=== PATIENT | male | born 1965 | race Caucasian/White ===

== ENCOUNTER 2020-03-28 07:25 | Inpatient (IN) | payer OTHER ==
--- NOTE | 2020-03-28 07:57 | EDM.PDOC ---
ED HPI GENERAL MEDICAL PROBLEM - General Chief Complaint: Lower Extremity Injury/Pain Stated Complaint: PT. LEGS ARE WEAK Time Seen by Provider: 03/28/20 07:42 Source of Information: Reports: Patient History Limitations: Reports: No Limitations - History of Present Illness INITIAL COMMENTS - FREE TEXT/NARRATIVE: Patient is a 55-year-old male with a history of high blood pressure presents today for right-sided weakness. Patient states that he woke up around 5 AM when he realized that he had difficulty getting out of bed felt his right leg and arms were both weak. Patient felt as if he could not control his right arm and leg and said it took him 15 minutes to finally get out of bed. He states that his symptoms are improving somewhat currently but are not back to baseline. Patient denies any vision changes speech changes or any other neurologic complaints. Onset: Today - Related Data Allergies Allergy/AdvReac Type Severity Reaction Status Date / Time No Known Allergies Allergy Verified 03/28/20 07:35 Home Meds: Home Meds NIFEdipine [Nifedipine ER] 1 tab PO DAILY 03/28/20 [History] Past Medical History Cardiovascular History: Reports: Hypertension Genitourinary History: Reports: Renal Calculus Social & Family History - Tobacco Use Tobacco Use Status *Q: Never Tobacco User Second Hand Smoke Exposure: No - Caffeine Use Caffeine Use: Reports: Coffee, Energy Drinks, Tea - Recreational Drug Use Recreational Drug Use: No - Living Situation & Occupation Living situation: Reports: , Alone Occupation: Employed ([employer]) Review of Systems - Review of Systems Review Of Systems: See Below Constitutional: Reports: No Symptoms Eyes: Reports: No Symptoms Ears: Reports: No Symptoms Nose: Reports: No Symptoms Mouth/Throat: Reports: No Symptoms Respiratory: Reports: No Symptoms Cardiovascular: Reports: No Symptoms GI/Abdominal: Reports: No Symptoms Genitourinary: Reports: No Symptoms Musculoskeletal: Reports: No Symptoms Skin: Reports: No Symptoms Neurological: Reports: Difficulty Walking Psychiatric: Reports: No Symptoms ED EXAM, GENERAL - Physical Exam Exam: See Below Exam Limited By: No Limitations General Appearance: Alert, WD/WN Eye Exam: Bilateral Eye: EOMI, PERRL Nose: Normal Inspection Head: Atraumatic Respiratory/Chest: No Respiratory Distress, Lungs Clear Cardiovascular: Normal Peripheral Pulses, Regular Rate, Rhythm GI/Abdominal: Normal Bowel Sounds, Soft, Non-Tender Back Exam: Full Range of Motion Extremities: Normal Range of Motion Neurological: Alert, Oriented, CN II-XII Intact, Sensory/Motor Deficit (strength 5/5 left side and 3/5 upper and lower right side ). No: Normal Gait #1 Interpretation EKG Date: 03/28/20 Time: 08:10 Rhythm: NSR Rate (Beats/Min): 85 ST-T: Normal Course - Vital Signs Last Recorded V/S: Last Vital Signs Temp 96.1 F L 03/28/20 07:38 Pulse 87 03/28/20 08:30 Resp 26 H 03/28/20 08:30 BP 129/87 03/28/20 08:30 Pulse Ox 96 03/28/20 08:30 - Orders/Labs/Meds Orders: Active Orders 24 hr Category Date Time Status EKG 12 Lead [EKG Documentation Completion] [RC] STAT Care 03/28/20 08:10 Active Labs: Laboratory Tests 03/28/20 03/28/20 03/28/20 Range/Units 07:52 07:52 07:52 WBC 5.15 (4.0-11.0) K/uL RBC 5.20 (4.50-5.90) M/uL Hgb 15.2 (13.0-17.0) g/dL Hct 45.8 (38.0-50.0) % MCV 88.1 (80.0-98.0) fL MCH 29.2 (27.0-32.0) pg MCHC 33.2 (31.0-37.0) g/dL RDW Std Deviation 43.6 (28.0-62.0) fl RDW Coeff of Miguelito 14 (11.0-15.0) % Plt Count 233 (150-400) K/uL MPV 9.30 (7.40-12.00) fL Neut % (Auto) 34.2 L (48.0-80.0) % Lymph % (Auto) 57.3 H (16.0-40.0) % Crook % (Auto) 6.2 (0.0-15.0) % Eos % (Auto) 1.7 (0.0-7.0) % Baso % (Auto) 0.6 (0.0-1.5) % Neut # (Auto) 1.8 (1.4-5.7) K/uL Lymph # (Auto) 3.0 H (0.6-2.4) K/uL Crook # (Auto) 0.3 (0.0-0.8) K/uL Eos # (Auto) 0.1 (0.0-0.7) K/uL Baso # (Auto) 0.0 (0.0-0.1) K/uL Nucleated RBC % 0.0 /100WBC Nucleated RBCs # 0 K/uL INR 1.00 APTT 22.9 (18.6-31.3) SEC Sodium 138 (136-148) mmol/L Potassium 3.7 (3.5-5.1) mmol/L Chloride 103 (98-107) mmol/L Carbon Dioxide 26.1 (21.0-32.0) mmol/L BUN 8 (7.0-18.0) mg/dL Creatinine 1.0 (0.8-1.3) mg/dL Est Cr Clr Drug Dosing 88.90 mL/min Estimated GFR (MDRD) > 60.0 ml/min Glucose 152 H (74-106) mg/dL POC Glucose (60-110) mg/dL Calcium 8.9 (8.5-10.1) mg/dL Magnesium 2.2 (1.8-2.4) mg/dL Total Bilirubin 0.3 (0.2-1.0) mg/dL AST 28 (15-37) IU/L ALT 55 (14-63) IU/L Alkaline Phosphatase 74 (46-116) U/L Creatine Kinase 190 (26-308) U/L Total Protein 7.9 (6.4-8.2) g/dL Albumin 3.9 (3.4-5.0) g/dL Globulin 4.0 (2.6-4.0) g/dL Albumin/Globulin Ratio 1.0 (0.9-1.6) Urine Opiates Screen (NEGATIVE) Ur Oxycodone Screen (NEGATIVE) Urine Methadone Screen (NEGATIVE) Ur Barbiturates Screen (NEGATIVE) Ur Phencyclidine Scrn (NEGATIVE) Ur Amphetamine Screen (NEGATIVE) U Methamphetamines Scrn (NEGATIVE) U Benzodiazepines Scrn (NEGATIVE) U Cocaine Metab Screen (NEGATIVE) U Marijuana (THC) Screen (NEGATIVE) Ethyl Alcohol <3 mg/dL Influenza Type A RNA (NEGATIVE) Influenza Type B RNA (NEGATIVE) SARS-CoV-2 RNA (JILL) (NEGATIVE) 03/28/20 03/28/20 03/28/20 Range/Units 07:52 08:28 08:35 WBC (4.0-11.0) K/uL RBC (4.50-5.90) M/uL Hgb (13.0-17.0) g/dL Hct (38.0-50.0) % MCV (80.0-98.0) fL MCH (27.0-32.0) pg MCHC (31.0-37.0) g/dL RDW Std Deviation (28.0-62.0) fl RDW Coeff of Miguelito (11.0-15.0) % Plt Count (150-400) K/uL MPV (7.40-12.00) fL Neut % (Auto) (48.0-80.0) % Lymph % (Auto) (16.0-40.0) % Crook % (Auto) (0.0-15.0) % Eos % (Auto) (0.0-7.0) % Baso % (Auto) (0.0-1.5) % Neut # (Auto) (1.4-5.7) K/uL Lymph # (Auto) (0.6-2.4) K/uL Crook # (Auto) (0.0-0.8) K/uL Eos # (Auto) (0.0-0.7) K/uL Baso # (Auto) (0.0-0.1) K/uL Nucleated RBC % /100WBC Nucleated RBCs # K/uL INR APTT (18.6-31.3) SEC Sodium (136-148) mmol/L Potassium (3.5-5.1) mmol/L Chloride (98-107) mmol/L Carbon Dioxide (21.0-32.0) mmol/L BUN (7.0-18.0) mg/dL Creatinine (0.8-1.3) mg/dL Est Cr Clr Drug Dosing mL/min Estimated GFR (MDRD) ml/min Glucose (74-106) mg/dL POC Glucose 143 H (60-110) mg/dL Calcium (8.5-10.1) mg/dL Magnesium (1.8-2.4) mg/dL Total Bilirubin (0.2-1.0) mg/dL AST (15-37) IU/L ALT (14-63) IU/L Alkaline Phosphatase (46-116) U/L Creatine Kinase (26-308) U/L Total Protein (6.4-8.2) g/dL Albumin (3.4-5.0) g/dL Globulin (2.6-4.0) g/dL Albumin/Globulin Ratio (0.9-1.6) Urine Opiates Screen NEGATIVE (NEGATIVE) Ur Oxycodone Screen NEGATIVE (NEGATIVE) Urine Methadone Screen NEGATIVE (NEGATIVE) Ur Barbiturates Screen NEGATIVE (NEGATIVE) Ur Phencyclidine Scrn NEGATIVE (NEGATIVE) Ur Amphetamine Screen NEGATIVE (NEGATIVE) U Methamphetamines Scrn NEGATIVE (NEGATIVE) U Benzodiazepines Scrn NEGATIVE (NEGATIVE) U Cocaine Metab Screen NEGATIVE (NEGATIVE) U Marijuana (THC) Screen NEGATIVE (NEGATIVE) Ethyl Alcohol mg/dL Influenza Type A RNA NEGATIVE (NEGATIVE) Influenza Type B RNA NEGATIVE (NEGATIVE) SARS-CoV-2 RNA (JILL) NEGATIVE (NEGATIVE) Meds: Medications Discontinued Medications Generic Name Dose Route Start Last Admin Trade Name Freq PRN Reason Stop Dose Admin Aspirin 325 mg 03/28/20 08:25 03/28/20 08:30 Aspirin PO 03/28/20 08:26 325 mg ONETIME ONE Administration Iopamidol 100 ml 03/28/20 09:30 03/28/20 09:31 Isovue Multipack-370 (76%) IVPUSH 03/28/20 09:31 100 ml ONETIME ONE Administration - Re-Assessments/Exams Free Text/Narrative Re-Assessment/Exam: 03/28/20 08:26 CT head is negative for stroke. Patient has better strength in his right arm but still complaining of weakness in his left lower extremity that is since became worse again. Patient will be given aspirin and admitted to the hospital for further care. 03/28/20 09:55 Patient CTAs are negative we spoke to hospitalist will admit patient for TIA work-up. Departure - Departure Time of Disposition: 09:55 Disposition: Admitted As Inpatient 66 Condition: Good Clinical Impression: TIA (transient ischemic attack) - Discharge Information *PRESCRIPTION DRUG MONITORING PROGRAM REVIEWED*: Not Applicable *COPY OF PRESCRIPTION DRUG MONITORING REPORT IN PATIENT JOSE: Not Applicable Referrals: PCP,None [Primary Care Provider] - Forms: ED Department Discharge Sepsis Event Note (ED) - Evaluation Sepsis Screening Result: No Definite Risk - Focused Exam Vital Signs: Vital Signs Temp Pulse Resp BP Pulse Ox 03/28/20 08:30 87 26 H 129/87 96 03/28/20 08:15 87 17 134/91 H 99 03/28/20 08:09 90 17 136/89 98 03/28/20 07:50 96 98 03/28/20 07:38 96.1 F L 85 16 136/100 H 98 - My Orders Last 24 Hours: My Active Orders 03/28/20 08:10 EKG 12 Lead [EKG Documentation Completion] [RC] STAT - Assessment/Plan Last 24 Hours: My Active Orders 03/28/20 08:10 EKG 12 Lead [EKG Documentation Completion] [RC] STAT Assessment:: Patient is a 55-year-old male presents today for right upper and lower extremity weakness. Patient has some decreased strength in the right upper and lower extremities on examination. Patient NIH stroke scale is a 4 has limb ataxia motor arm and leg. Will obtain CT head labs and reassess. Due to patient waking up with the symptoms patient is not a TPA candidate at this time.
--- NOTE | 2020-03-28 08:20 | CT ---
INDICATION: Right-sided weakness. TECHNIQUE: CT head without contrast. Coronal/sagittal reconstruction images. COMPARISON: None FINDINGS: CSF spaces: Within normal limits for age. Brain parenchyma: The muhammad-white differentiation is normal. No sign of mass, hemorrhage, or midline shift. Skull base and calvarium: The visualized paranasal sinuses and mastoid air cells are clear. The visualized orbits are grossly unremarkable. No skull fractures. IMPRESSION: 1. There is no acute intracranial hemorrhage, shift of midline structures, or mass effect. 2. No hyperdense MCA sign. 3. Muhammad-white matter differentiation appears maintained on noncontrast head CT. 4. Report called to Dr. Andersen, Emergency Department, 03/28/20, 0819 hours. Please note that all CT scans at this facility use dose modulation, iterative reconstruction, and/or weight-based dosing when appropriate to reduce radiation dose to as low as reasonably achievable. Dictated by Jeremy Magana MD @ Mar 28 2020 8:14AM Signed by Dr. Jeremy Magana @ Mar 28 2020 8:19AM
[2020-03-28 08:22] LABS: BLOOD UREA NITROGEN,BUN 8 mg/dL (7.0-18.0); CARBON DIOXIDE,CO2 26.1 mmol/L (21.0-32.0); CHLORIDE,CL 103 mmol/L (98-107); GLUCOSE RANDOM 152 mg/dL (74-106); POTASSIUM,K 3.7 mmol/L (3.5-5.1); SODIUM,NA 138 mmol/L (136-148)
[2020-03-28] MEDS ORDERED: Aspirin 325 MG Tab PO ONE (08:25)
[2020-03-28 09:21] LABS: CORONAVIRUS COVID-19 NAA NEGATIVE (NEGATIVE); INFLUENZA A NAA NEGATIVE (NEGATIVE); INFLUENZA B NAA NEGATIVE (NEGATIVE)
[2020-03-28] MEDS ORDERED: Iopamidol 755 MG/ML 500 ML Multipack Bottle IVPUSH ONE (09:30)
--- NOTE | 2020-03-28 09:44 | CT ---
INDICATION: Acute stroke, right-sided weakness. TECHNIQUE: After standard noncontrast head CT, high resolution axial CT images acquired through the head and neck following rapid intravenous administration of iodinated contrast. Multiplanar MIPS of cranial and cervical vasculature performed. FINDINGS: Noncontrast head CT: There is no intracranial hemorrhage or fluid collection. The beasley-white matter differentiation is maintained. The ventricles are of normal morphology. The basal cisterns are clear. CTA head: There is normal filling of the intracranial vasculature; i.e. there is no large vessel occlusion or significant intracranial stenosis. There is no cerebral aneurysm or evidence for vascular malformation. CTA neck: There is no carotid or vertebral artery stenosis or dissection. The soft tissues of the neck are within normal limits. The cervical spine is in normal alignment. The lung apices are clear. IMPRESSION: Unremarkable CT head, CTA head and neck. Reginaldo Stapleton MD [facility] [employer] [facility] Please note that all CT scans at this facility use dose modulation, iterative reconstruction, and/or weight-based dosing when appropriate to reduce radiation dose to as low as reasonably achievable. Dictated by Reginaldo Stapleton MD @ Mar 28 2020 10:26AM Signed by Dr. Reginaldo Stapleton @ Mar 28 2020 10:31AM
[2020-03-28] MEDS ORDERED: Ondansetron 4 MG Tab.DIS PO PRN (13:31)
[2020-03-28] MEDS ORDERED: Acetaminophen 325 MG Tab PO PRN (13:31)
[2020-03-28 13:58] LABS: HEMOGLOBIN A1C 6.2 %
--- NOTE | 2020-03-28 14:09 | PCM.HP.2 ---
H&P History of Present Illness - General Date of Service: 03/28/20 Admit Problem/Dx: Admission Diagnosis/Problem Admission Diagnosis/Problem TIA, Transient ischemic attack TIA vs. Stroke Source of Information: Patient - History of Present Illness Initial Comments - Free Text/Narative: Patient is a 55-year-old gentleman with a past medical history of hypertension. Patient came into the ER with complaints of noted weakness in his right upper extremity and lower extremity. He noted his symptoms at 5 AM when he got up as he was having difficulty getting out of bed and he took approximately 15 minutes to get out. Patient denies any previous similar events, no history of known hyperlipidemia, tobacco abuse, obesity, or previous strokes or TIA. However does endorse family history of strokes in both parents in their early 50s and 60s. Patient denied any associated cranial nerve defects, no difficulty with speech or slurring, no sensory deficits appreciated throughout, no headache, no fever, no chills, no numbness or tingling. Since coming to the ER upper extremity strength has somewhat improved but lower extremity continues to worsen. Patient was seen and examined at bedside and unable to lift his right lower extremity, wiggles toes. Denies any alleviating or aggravating factors. ER course: CBC, CMP, EKG, CT head, CTA head and neck, PT/INR, urine tox, Covid, influenza AMB all were unremarkable. Therapy given in the ED: Aspirin 325 mg Onset of Symptoms: Reports: Today, Sudden Associated Symptoms: Reports: Weakness (in Rt. upper extremity and unable to move his Rt. lower extremity.) - Related Data Allergies/Adverse Reactions: Allergies Allergy/AdvReac Type Severity Reaction Status Date / Time No Known Allergies Allergy Verified 03/28/20 07:35 Home Medications: Home Meds NIFEdipine [Nifedipine ER] 1 tab PO DAILY 03/28/20 [History] Past Medical History Cardiovascular History: Reports: Hypertension Respiratory History: Reports: None Gastrointestinal History: Reports: None Genitourinary History: Reports: Renal Calculus Musculoskeletal History: Reports: None Hematologic History: Reports: None Oncologic (Cancer) History: Reports: None - Past Surgical History Head Surgeries/Procedures: Reports: None Cardiovascular Surgical History: Reports: None Social & Family History - Tobacco Use Tobacco Use Status *Q: Never Tobacco User Second Hand Smoke Exposure: No - Caffeine Use Caffeine Use: Reports: Coffee - Alcohol Use Days Per Week of Alcohol Use: 3 Number of Drinks Per Day: 1 Total Drinks Per Week: 3 Date of Last Drink: 03/25/20 - Recreational Drug Use Recreational Drug Use: No - Living Situation & Occupation Living situation: Reports: , Alone Occupation: Employed ([employer]) H&P Review of Systems - Review of Systems: Review Of Systems: See Below General: Reports: No Symptoms HEENT: Reports: No Symptoms Pulmonary: Reports: No Symptoms Cardiovascular: Reports: No Symptoms Gastrointestinal: Reports: No Symptoms Genitourinary: Reports: No Symptoms Musculoskeletal: Reports: No Symptoms Skin: Reports: No Symptoms Psychiatric: Reports: No Symptoms Neurological: Reports: Weakness Hematologic/Lymphatic: Reports: No Symptoms Immunologic: Reports: No Symptoms Exam - Exam Exam: See Below - Vital Signs Vital Signs: Last Vital Signs Temp 98.1 F 03/28/20 11:05 Pulse 91 03/28/20 11:05 Resp 19 03/28/20 11:05 BP 132/80 03/28/20 11:05 Pulse Ox 97 03/28/20 11:05 Weight: 192 lb 7.417 oz - Exam Quality Assessment: DVT Prophylaxis General: Alert, Oriented, Cooperative, Mild Distress, Moderate Distress HEENT: Conjunctiva Clear, EACs Clear, EOMI, Hearing Intact, Mucosa Moist & [place], Nares Patent, Normal Nasal Septum, Pupils Equal, Pupils Reactive, PERRLA Neck: Supple, Trachea Midline. No: +2 Carotid Pulse wo Bruit Lungs: Clear to Auscultation, Normal Respiratory Effort Cardiovascular: Regular Rate, Regular Rhythm GI/Abdominal Exam: Normal Bowel Sounds, Soft, Non-Tender, No Organomegaly, No Distention, No Abnormal Bruit, No Mass, Pelvis Stable Extremities: Normal Inspection, Normal Range of Motion, Non-Tender, No Pedal Edema, Normal Capillary Refill Peripheral Pulses: 2+: Radial (L), Radial (R), Popliteal (L), Popliteal (R) Skin: Warm, Dry, Intact Neurological: Cranial Nerves Intact, Reflexes Equal Bilateral Neuro Extensive - Mental Status: Alert, Oriented x3, Normal Mood/Affect, Normal Cognition, Memory Intact Neuro Extensive - Motor, Sensory, Reflexes: CN II-XII Intact, Hemeplagia (R), Pronator Drift (R) (Mild), Abnormal Heel to Adams (Unable to perform on right side), Abnormal Motor (Unable to lift, flex, extend or bend right lower extremity). No: Dysarthria, Receptive Aphasia, Expressive Aphasia, Facial Palsy wo Forehead, Babinski (Negative on right) DTR: 0: Patella (R), 1+: Bicep (R) (Difficult to assess), 2+: Bicep (L), Patella (L) Psychiatric: Alert, Normal Affect, Normal Mood - Patient Data Lab Results Last 24 hrs: Laboratory Results - last 24 hr 03/28/20 03/28/20 03/28/20 Range/Units 07:52 07:52 07:52 WBC 5.15 (4.0-11.0) K/uL RBC 5.20 (4.50-5.90) M/uL Hgb 15.2 (13.0-17.0) g/dL Hct 45.8 (38.0-50.0) % MCV 88.1 (80.0-98.0) fL MCH 29.2 (27.0-32.0) pg MCHC 33.2 (31.0-37.0) g/dL RDW Std Deviation 43.6 (28.0-62.0) fl RDW Coeff of Miguelito 14 (11.0-15.0) % Plt Count 233 (150-400) K/uL MPV 9.30 (7.40-12.00) fL Neut % (Auto) 34.2 L (48.0-80.0) % Lymph % (Auto) 57.3 H (16.0-40.0) % [place] % (Auto) 6.2 (0.0-15.0) % Eos % (Auto) 1.7 (0.0-7.0) % Baso % (Auto) 0.6 (0.0-1.5) % Neut # (Auto) 1.8 (1.4-5.7) K/uL Lymph # (Auto) 3.0 H (0.6-2.4) K/uL [place] # (Auto) 0.3 (0.0-0.8) K/uL Eos # (Auto) 0.1 (0.0-0.7) K/uL Baso # (Auto) 0.0 (0.0-0.1) K/uL Nucleated RBC % 0.0 /100WBC Nucleated RBCs # 0 K/uL INR 1.00 APTT 22.9 (18.6-31.3) SEC Sodium 138 (136-148) mmol/L Potassium 3.7 (3.5-5.1) mmol/L Chloride 103 (98-107) mmol/L Carbon Dioxide 26.1 (21.0-32.0) mmol/L BUN 8 (7.0-18.0) mg/dL Creatinine 1.0 (0.8-1.3) mg/dL Est Cr Clr Drug Dosing 88.90 mL/min Estimated GFR (MDRD) > 60.0 ml/min Glucose 152 H (74-106) mg/dL POC Glucose (60-110) mg/dL Calcium 8.9 (8.5-10.1) mg/dL Magnesium 2.2 (1.8-2.4) mg/dL Total Bilirubin 0.3 (0.2-1.0) mg/dL AST 28 (15-37) IU/L ALT 55 (14-63) IU/L Alkaline Phosphatase 74 (46-116) U/L Creatine Kinase 190 (26-308) U/L Total Protein 7.9 (6.4-8.2) g/dL Albumin 3.9 (3.4-5.0) g/dL Globulin 4.0 (2.6-4.0) g/dL Albumin/Globulin Ratio 1.0 (0.9-1.6) Urine Opiates Screen (NEGATIVE) Ur Oxycodone Screen (NEGATIVE) Urine Methadone Screen (NEGATIVE) Ur Barbiturates Screen (NEGATIVE) Ur Phencyclidine Scrn (NEGATIVE) Ur Amphetamine Screen (NEGATIVE) U Methamphetamines Scrn (NEGATIVE) U Benzodiazepines Scrn (NEGATIVE) U Cocaine Metab Screen (NEGATIVE) U Marijuana (THC) Screen (NEGATIVE) Ethyl Alcohol <3 mg/dL Influenza Type A RNA (NEGATIVE) Influenza Type B RNA (NEGATIVE) SARS-CoV-2 RNA (JILL) (NEGATIVE) 03/28/20 03/28/20 03/28/20 Range/Units 07:52 08:28 08:35 WBC (4.0-11.0) K/uL RBC (4.50-5.90) M/uL Hgb (13.0-17.0) g/dL Hct (38.0-50.0) % MCV (80.0-98.0) fL MCH (27.0-32.0) pg MCHC (31.0-37.0) g/dL RDW Std Deviation (28.0-62.0) fl RDW Coeff of Miguelito (11.0-15.0) % Plt Count (150-400) K/uL MPV (7.40-12.00) fL Neut % (Auto) (48.0-80.0) % Lymph % (Auto) (16.0-40.0) % [place] % (Auto) (0.0-15.0) % Eos % (Auto) (0.0-7.0) % Baso % (Auto) (0.0-1.5) % Neut # (Auto) (1.4-5.7) K/uL Lymph # (Auto) (0.6-2.4) K/uL [place] # (Auto) (0.0-0.8) K/uL Eos # (Auto) (0.0-0.7) K/uL Baso # (Auto) (0.0-0.1) K/uL Nucleated RBC % /100WBC Nucleated RBCs # K/uL INR APTT (18.6-31.3) SEC Sodium (136-148) mmol/L Potassium (3.5-5.1) mmol/L Chloride (98-107) mmol/L Carbon Dioxide (21.0-32.0) mmol/L BUN (7.0-18.0) mg/dL Creatinine (0.8-1.3) mg/dL Est Cr Clr Drug Dosing mL/min Estimated GFR (MDRD) ml/min Glucose (74-106) mg/dL POC Glucose 143 H (60-110) mg/dL Calcium (8.5-10.1) mg/dL Magnesium (1.8-2.4) mg/dL Total Bilirubin (0.2-1.0) mg/dL AST (15-37) IU/L ALT (14-63) IU/L Alkaline Phosphatase (46-116) U/L Creatine Kinase (26-308) U/L Total Protein (6.4-8.2) g/dL Albumin (3.4-5.0) g/dL Globulin (2.6-4.0) g/dL Albumin/Globulin Ratio (0.9-1.6) Urine Opiates Screen NEGATIVE (NEGATIVE) Ur Oxycodone Screen NEGATIVE (NEGATIVE) Urine Methadone Screen NEGATIVE (NEGATIVE) Ur Barbiturates Screen NEGATIVE (NEGATIVE) Ur Phencyclidine Scrn NEGATIVE (NEGATIVE) Ur Amphetamine Screen NEGATIVE (NEGATIVE) U Methamphetamines Scrn NEGATIVE (NEGATIVE) U Benzodiazepines Scrn NEGATIVE (NEGATIVE) U Cocaine Metab Screen NEGATIVE (NEGATIVE) U Marijuana (THC) Screen NEGATIVE (NEGATIVE) Ethyl Alcohol mg/dL Influenza Type A RNA NEGATIVE (NEGATIVE) Influenza Type B RNA NEGATIVE (NEGATIVE) SARS-CoV-2 RNA (JILL) NEGATIVE (NEGATIVE) Result Diagrams: 03/28/20 07:52 03/28/20 07:52 Sepsis Event Note - Evaluation Sepsis Screening Result: No Definite Risk - Focused Exam Vital Signs: Vital Signs Temp Pulse Resp BP Pulse Ox 03/28/20 11:05 98.1 F 91 19 132/80 97 03/28/20 10:45 88 130/67 97 03/28/20 10:30 89 133/78 97 03/28/20 10:15 92 125/79 98 03/28/20 10:00 88 19 128/76 98 03/28/20 09:45 87 22 H 108/58 L 98 03/28/20 09:30 85 156/101 H 95 03/28/20 08:50 87 20 123/89 95 03/28/20 08:30 87 26 H 129/87 96 03/28/20 08:15 87 17 134/91 H 99 03/28/20 08:09 90 17 136/89 98 03/28/20 07:50 96 98 03/28/20 07:38 96.1 F L 85 16 136/100 H 98 - Problem List (1) Stroke SNOMED Code(s): 200803052 ICD Code: I63.9 - CEREBRAL INFARCTION, UNSPECIFIED Status: Acute Current Visit: Yes (2) TIA (transient ischemic attack) SNOMED Code(s): 532759130 ICD Code: G45.9 - TRANSIENT CEREBRAL ISCHEMIC ATTACK, UNSPECIFIED Status: Acute Current Visit: Yes Problem List Initiated/Reviewed/Updated: Yes Orders Last 24hrs: Active Orders 24 hr Category Date Time Status Patient Status [ADT] Routine ADT 03/28/20 09:56 Active Antiembolic Devices [RC] PER UNIT ROUTINE Care 03/28/20 13:33 Ordered Cardiac Monitoring [RC] . DIRECTED Care 03/28/20 13:31 Ordered EKG 12 Lead [EKG Documentation Completion] [RC] STAT Care 03/28/20 08:10 Active Neuro Check [RC] BID Care 03/28/20 13:40 Ordered Notify Provider Consults [RC] ASDIRECTED Care 03/28/20 13:45 Ordered Oxygen Therapy [RC] PRN Care 03/28/20 13:31 Ordered Up With Assistance [RC] ASDIRECTED Care 03/28/20 13:31 Ordered VTE/DVT Education [RC] PER UNIT ROUTINE Care 03/28/20 13:31 Ordered Vital Signs [RC] Q4H Care 03/28/20 13:31 Ordered Consult to Physician [CONS] Stat Cons 03/28/20 13:45 Ordered OT Evaluation and Treatment [CONS] Routine Cons 03/28/20 13:31 Ordered PT Evaluation and Treatment [CONS] Routine Cons 03/28/20 13:31 Ordered Heart Healthy Diet [DIET] Diet 03/28/20 Dinner Active Brain w wo Cont [MR] Routine Exams 03/29/20 13:48 Ordered Echo 2D wo Cont [US] Urgent Exams 03/29/20 13:43 Ordered MRA Head Without Contrast [Ang Head wo Cont] [MR] Exams 03/29/20 13:42 Stop Req Urgent CBC WITH AUTO DIFF [HEME] AM Lab 03/29/20 05:11 Ordered CBC WITH AUTO DIFF [HEME] AM Lab 03/30/20 05:11 Ordered CBC WITH AUTO DIFF [HEME] AM Lab 03/31/20 05:11 Ordered CBC WITH AUTO DIFF [HEME] AM Lab 04/01/20 05:11 Ordered CBC WITH AUTO DIFF [HEME] AM Lab 04/02/20 05:11 Ordered COMPREHENSIVE METABOLIC PN,CMP [CHEM] AM Lab 03/29/20 05:11 Ordered COMPREHENSIVE METABOLIC PN,CMP [CHEM] AM Lab 03/30/20 05:11 Ordered COMPREHENSIVE METABOLIC PN,CMP [CHEM] AM Lab 03/31/20 05:11 Ordered COMPREHENSIVE METABOLIC PN,CMP [CHEM] AM Lab 04/01/20 05:11 Ordered COMPREHENSIVE METABOLIC PN,CMP [CHEM] AM Lab 04/02/20 05:11 Ordered GLYCOSYLATED HEMOGLOBIN,HGBA1C [CHEM] Routine Lab 03/28/20 13:31 Ordered LIPID PANEL [CHEM] Routine Lab 03/28/20 13:31 Ordered Acetaminophen [TylenoL] Med 03/28/20 13:31 Ordered 650 mg PO Q4H PRN Enoxaparin [Lovenox] Med 03/28/20 13:45 Ordered 40 mg SUBCUT Q24H Ondansetron [Zofran ODT] Med 03/28/20 13:31 Ordered 4 mg PO Q4H PRN atorvaSTATin [Lipitor] Med 03/28/20 21:00 Ordered 80 mg PO BEDTIME Sequential Compression Device [OM.PC] Per Unit Routine Oth 03/28/20 13:32 Ordered Resuscitation Status Routine Resus Stat 03/28/20 13:31 Ordered Medication Orders Acetaminophen (Tylenol) 650 mg PO Q4H PRN PRN Reason: Pain (Mild 1-3)/fever Atorvastatin Calcium (Lipitor) 80 mg PO BEDTIME AFSHIN Enoxaparin Sodium (Lovenox) 40 mg SUBCUT Q24H AFSHIN Ondansetron HCl (Zofran Odt) 4 mg PO Q4H PRN PRN Reason: nausea, able to take PO Assessment/Plan Comment:: Patient is a 55-year-old gentleman past medical history of hypertension, admitted for stroke versus TIA work-up. 1. Possible stroke versus TIA: Right-sided hemiplegia affecting right upper extremity and right lower extremity. Right extremity improved since coming to the ED, patient finds lower extremity symptoms are worsening. Otherwise denies any cranial nerve defects, preserved sensation throughout, denies any paresthesias. On physical examination noted significant weakness in right lower extremity. Unable to lift, extend, flex, or move joint with negative reflexes at knee ankle and Babinski. NIH score: 4 ABCD2 score: 4 CT head/CTA head and neck were all unremarkable, will perform MRI with and without contrast tomorrow as well as 2D echo. PT OT for evaluation and treatment We will consult Dr. Calvin and neurology. Time of stroke versus TIA symptoms is unknown therefore not a candidate for TPA, started on aspirin 325 mg, will initiate 81 mg daily and atorvastatin 80 mg daily starting tomorrow Monitor on telemetry Assess for modifying factors such as hemoglobin A1c and lipid panel. 2. Past medical history of hypertension: Will hold nifedipine today consider resuming tomorrow based on MRI results DVT prophylaxis Lovenox 40, [place] heart healthy diet, activity up with assistance, GI prophylaxis pantoprazole 40.
[2020-03-28] MEDS ORDERED: Enoxaparin 40 MG/0.4 ML Syringe SUBCUT SCH (14:15)
--- NOTE | 2020-03-28 17:06 | CT ---
INDICATION: Stroke-like symptoms COMPARISON: A prior study from 8:07 a.m. today. There study is from March 28, 2020 at 4:51 p.m. TECHNIQUE: CT examination of the head was performed as axial sections without intravenous contrast. Images were obtained from the vertex of the skull through the skull base. Please note that all CT scans at this facility use dose modulation, iterative reconstruction, and/or weight-based dosing when appropriate to reduce radiation dose to as low as reasonably achievable. FINDINGS: The brain shows no sign of mass lesion, mass effect, hemorrhage, or edema. The ventricles and sulci are normal in appearance for the patient`s age. The visualized portions of the orbits are normal in appearance. The osseous structures are normal in their appearance with no sign of abnormality in the skull base or calvarium. IMPRESSION: Normal unenhanced head CT. Please note that all CT scans at this facility use dose modulation, iterative reconstruction, and/or weight-based dosing when appropriate to reduce radiation dose to as low as reasonably achievable. Dictated by Leonardo Vela MD @ Mar 28 2020 5:02PM Signed by Dr. Leonardo Vela @ Mar 28 2020 5:04PM
--- NOTE | 2020-03-28 19:10 | PCM.DCSUM1 ---
Discharge Summary - Hospital Course Brief History: Patient is a 55-year-old gentleman with a past medical history of hypertension. Patient came into the ER with complaints of noted weakness in his right upper extremity and lower extremity. He noted his symptoms at 5 AM when he got up as he was having difficulty getting out of bed and he took approximately 15 minutes to get out. Patient denies any previous similar events, no history of known hyperlipidemia, tobacco abuse, obesity, or previous strokes or TIA. However does endorse family history of strokes in both parents in their early 50s and 60s. Patient denied any associated cranial nerve defects, no difficulty with speech or slurring, no sensory deficits appreciated throughout, no headache, no fever, no chills, no numbness or tingling. Since coming to the ER upper extremity strength has somewhat improved but lower extremity continues to worsen. Patient was seen and examined at bedside and unable to lift his right lower extremity, wiggles toes. Denies any alleviating or aggravating factors. ER course: CBC, CMP, EKG, CT head, CTA head and neck, PT/INR, urine tox, Covid, influenza AMB all were unremarkable. Therapy given in the ED: Aspirin 325 mg Diagnosis: Stroke: Yes Modified Kidder Scale: Mod.Sev.Disability ;Unable to Walk/Attend Bodily Needs W/O Assistance Modified Kidder Scale Score: 4 - Discharge Data Discharge Date: 03/28/20 Discharge Disposition: DC/Tfer to Critical Access [facility] Condition: Stable - Referral to Home Health Primary Care Physician: PCP None - Discharge Diagnosis/Problem(s) (1) Stroke SNOMED Code(s): 167177580 ICD Code: I63.9 - CEREBRAL INFARCTION, UNSPECIFIED Status: Acute Current Visit: Yes (2) TIA (transient ischemic attack) SNOMED Code(s): 324138719 ICD Code: G45.9 - TRANSIENT CEREBRAL ISCHEMIC ATTACK, UNSPECIFIED Status: Acute Current Visit: Yes - Patient Summary/Data Consults: Consultations 03/28/20 13:31 OT Evaluation and Treatment [CONS] Routine PT Evaluation and Treatment [CONS] Routine 03/28/20 13:45 Consult to Physician [CONS] Stat Hospital Course: Patient is a 55-year-old gentleman past medical history of hypertension on nifedipine, was admitted for stroke versus TIA work-up. 1. Possible stroke versus TIA: Right-sided hemiplegia affecting right upper extremity and right lower extremity. Right extremity improved since coming to the ED, patient finds lower extremity symptoms are worsening. Otherwise denies any cranial nerve defects, preserved sensation throughout, denies any paresthesias. On physical examination noted significant weakness in right lower extremity. Unable to lift, extend, flex, or move joint with negative reflexes at knee ankle and Babinski. NIH score: 6 ABCD2 score: 4 CT head/CTA head and neck were all unremarkable, will perform MRI with and without contrast tomorrow as well as 2D echo. PT OT for evaluation and treatment We will consult Dr. Calvin and neurology. Time of stroke versus TIA symptoms is unknown therefore not a candidate for TPA, started on aspirin 325 mg, will initiate 81 mg daily and atorvastatin 80 mg daily starting tomorrow Monitor on telemetry Assess for modifying factors such as hemoglobin A1c and lipid panel, results came back 6.2 for hemoglobin A1c and cholesterol was only elevated to 18 2. Past medical history of hypertension: Will hold nifedipine today consider resuming tomorrow based on MRI results DVT prophylaxis Lovenox 40, Serbian heart healthy diet, activity up with assistance, GI prophylaxis pantoprazole 40. Above was plan on admission Mid afternoon patient became slightly altered mental status, confused about where he was and forgot why he was admitted. He was also noted to be more fatigued appearing. Stroke code was called, blood glucose and an EKG were assessed; both unremarkable. Had repeat CT head which was unremarkable. Physical examination had unchanged from previous, NIH score remained 6. An hour later patient appears to be confused again but where he is. Resembling a possible postictal state, felt need for EEG, possible MRI and neurology consult which may or may not be available until tomorrow. Decided to transfer to a higher level of care. Dr. Richmond was kind enough to accept we appreciate her help - Discharge Plan *PRESCRIPTION DRUG MONITORING PROGRAM REVIEWED*: Not Applicable *COPY OF PRESCRIPTION DRUG MONITORING REPORT IN PATIENT JOSE: Not Applicable Home Medications: Home Meds Enoxaparin [Lovenox] 40 mg SUBCUT Q24H syringe 03/28/20 [Rx] NIFEdipine [Nifedipine ER] 1 tab PO DAILY 03/28/20 [History] atorvaSTATin [Lipitor] 80 mg PO BEDTIME tablet 03/28/20 [Rx] Oxygen Therapy Mode: Room Air Forms: ED Department Discharge Referrals: PCP,None [Primary Care Provider] - - Discharge Summary/Plan Comment DC Time >30 min.: Yes (due to arranging transfer to higher level of care ) Discharge Summary/Plan Comment: Patient will be accepted by Dr. Richmond in the ER in my not for further EEG and neurology assessment for possible stroke versus seizure. - General Info Admission Dx/Problem (Free Text: Admission Diagnosis/Problem Admission Diagnosis/Problem TIA, Transient ischemic attack TIA vs. Stroke Subjective Update: 55-year-old gentleman with a past medical history of hypertension which she takes nifedipine for and is compliant and tolerant. He was admitted for noted weakness in both right upper and lower extremity upon waking up this morning at 5 AM. Denied any other neurological symptoms. No history of previous stroke although has a family history of stroke in both parents in the 50s and 60s. Patient is a non-smoker. Functional Status: Reports: Tolerating Diet, Other (Was kept n.p.o. this afternoon due to possible transfer's for possible studies) - Review of Systems General: Reports: No Symptoms HEENT: Reports: No Symptoms Pulmonary: Reports: No Symptoms Cardiovascular: Reports: No Symptoms Gastrointestinal: Reports: No Symptoms Genitourinary: Reports: No Symptoms Musculoskeletal: Reports: No Symptoms Skin: Reports: No Symptoms Neurological: Reports: No Symptoms Psychiatric: Reports: No Symptoms - Patient Data Vitals - Most Recent: Last Vital Signs Temp 99 F 03/28/20 16:31 Pulse 91 03/28/20 16:31 Resp 18 03/28/20 16:31 BP 125/72 03/28/20 16:31 Pulse Ox 96 03/28/20 16:31 Weight - Most Recent: 192 lb 7.417 oz I&O - Last 24 hours: Intake & Output 03/28/20 03/28/20 03/28/20 06:59 14:59 22:59 Intake Total 60 Output Total 300 220 Balance -300 -160 Lab Results - Last 24 hrs: Laboratory Results - last 24 hr 03/28/20 03/28/20 03/28/20 Range/Units 07:52 07:52 07:52 WBC 5.15 (4.0-11.0) K/uL RBC 5.20 (4.50-5.90) M/uL Hgb 15.2 (13.0-17.0) g/dL Hct 45.8 (38.0-50.0) % MCV 88.1 (80.0-98.0) fL MCH 29.2 (27.0-32.0) pg MCHC 33.2 (31.0-37.0) g/dL RDW Std Deviation 43.6 (28.0-62.0) fl RDW Coeff of Miguelito 14 (11.0-15.0) % Plt Count 233 (150-400) K/uL MPV 9.30 (7.40-12.00) fL Neut % (Auto) 34.2 L (48.0-80.0) % Lymph % (Auto) 57.3 H (16.0-40.0) % [place] % (Auto) 6.2 (0.0-15.0) % Eos % (Auto) 1.7 (0.0-7.0) % Baso % (Auto) 0.6 (0.0-1.5) % Neut # (Auto) 1.8 (1.4-5.7) K/uL Lymph # (Auto) 3.0 H (0.6-2.4) K/uL [place] # (Auto) 0.3 (0.0-0.8) K/uL Eos # (Auto) 0.1 (0.0-0.7) K/uL Baso # (Auto) 0.0 (0.0-0.1) K/uL Nucleated RBC % 0.0 /100WBC Nucleated RBCs # 0 K/uL INR 1.00 APTT 22.9 (18.6-31.3) SEC Sodium 138 (136-148) mmol/L Potassium 3.7 (3.5-5.1) mmol/L Chloride 103 (98-107) mmol/L Carbon Dioxide 26.1 (21.0-32.0) mmol/L BUN 8 (7.0-18.0) mg/dL Creatinine 1.0 (0.8-1.3) mg/dL Est Cr Clr Drug Dosing 88.90 mL/min Estimated GFR (MDRD) > 60.0 ml/min Glucose 152 H (74-106) mg/dL POC Glucose (60-110) mg/dL Hemoglobin A1c (4.5 - 6.2) % Calcium 8.9 (8.5-10.1) mg/dL Magnesium 2.2 (1.8-2.4) mg/dL Total Bilirubin 0.3 (0.2-1.0) mg/dL AST 28 (15-37) IU/L ALT 55 (14-63) IU/L Alkaline Phosphatase 74 (46-116) U/L Creatine Kinase 190 (26-308) U/L Total Protein 7.9 (6.4-8.2) g/dL Albumin 3.9 (3.4-5.0) g/dL Globulin 4.0 (2.6-4.0) g/dL Albumin/Globulin Ratio 1.0 (0.9-1.6) Triglycerides (0-200) mg/dL Cholesterol (50-200) mg/dL LDL Cholesterol, Calc (60-180) mg/dL VLDL Cholesterol (5-55) mg/dL HDL Cholesterol (40-60) mg/dL Cholesterol/HDL Ratio (3.3-6.0) Urine Opiates Screen (NEGATIVE) Ur Oxycodone Screen (NEGATIVE) Urine Methadone Screen (NEGATIVE) Ur Barbiturates Screen (NEGATIVE) Ur Phencyclidine Scrn (NEGATIVE) Ur Amphetamine Screen (NEGATIVE) U Methamphetamines Scrn (NEGATIVE) U Benzodiazepines Scrn (NEGATIVE) U Cocaine Metab Screen (NEGATIVE) U Marijuana (THC) Screen (NEGATIVE) Ethyl Alcohol <3 mg/dL Influenza Type A RNA (NEGATIVE) Influenza Type B RNA (NEGATIVE) SARS-CoV-2 RNA (JILL) (NEGATIVE) 03/28/20 03/28/20 03/28/20 Range/Units 07:52 07:52 07:52 WBC (4.0-11.0) K/uL RBC (4.50-5.90) M/uL Hgb (13.0-17.0) g/dL Hct (38.0-50.0) % MCV (80.0-98.0) fL MCH (27.0-32.0) pg MCHC (31.0-37.0) g/dL RDW Std Deviation (28.0-62.0) fl RDW Coeff of Miguelito (11.0-15.0) % Plt Count (150-400) K/uL MPV (7.40-12.00) fL Neut % (Auto) (48.0-80.0) % Lymph % (Auto) (16.0-40.0) % [place] % (Auto) (0.0-15.0) % Eos % (Auto) (0.0-7.0) % Baso % (Auto) (0.0-1.5) % Neut # (Auto) (1.4-5.7) K/uL Lymph # (Auto) (0.6-2.4) K/uL [place] # (Auto) (0.0-0.8) K/uL Eos # (Auto) (0.0-0.7) K/uL Baso # (Auto) (0.0-0.1) K/uL Nucleated RBC % /100WBC Nucleated RBCs # K/uL INR APTT (18.6-31.3) SEC Sodium (136-148) mmol/L Potassium (3.5-5.1) mmol/L Chloride (98-107) mmol/L Carbon Dioxide (21.0-32.0) mmol/L BUN (7.0-18.0) mg/dL Creatinine (0.8-1.3) mg/dL Est Cr Clr Drug Dosing mL/min Estimated GFR (MDRD) ml/min Glucose (74-106) mg/dL POC Glucose 143 H (60-110) mg/dL Hemoglobin A1c 6.2 (4.5 - 6.2) % Calcium (8.5-10.1) mg/dL Magnesium (1.8-2.4) mg/dL Total Bilirubin (0.2-1.0) mg/dL AST (15-37) IU/L ALT (14-63) IU/L Alkaline Phosphatase (46-116) U/L Creatine Kinase (26-308) U/L Total Protein (6.4-8.2) g/dL Albumin (3.4-5.0) g/dL Globulin (2.6-4.0) g/dL Albumin/Globulin Ratio (0.9-1.6) Triglycerides 84 (0-200) mg/dL Cholesterol 218 H (50-200) mg/dL LDL Cholesterol, Calc 143 (60-180) mg/dL VLDL Cholesterol 16 (5-55) mg/dL HDL Cholesterol 58 (40-60) mg/dL Cholesterol/HDL Ratio 3.8 (3.3-6.0) Urine Opiates Screen (NEGATIVE) Ur Oxycodone Screen (NEGATIVE) Urine Methadone Screen (NEGATIVE) Ur Barbiturates Screen (NEGATIVE) Ur Phencyclidine Scrn (NEGATIVE) Ur Amphetamine Screen (NEGATIVE) U Methamphetamines Scrn (NEGATIVE) U Benzodiazepines Scrn (NEGATIVE) U Cocaine Metab Screen (NEGATIVE) U Marijuana (THC) Screen (NEGATIVE) Ethyl Alcohol mg/dL Influenza Type A RNA (NEGATIVE) Influenza Type B RNA (NEGATIVE) SARS-CoV-2 RNA (JILL) (NEGATIVE) 03/28/20 03/28/20 03/28/20 Range/Units 08:28 08:35 16:30 WBC (4.0-11.0) K/uL RBC (4.50-5.90) M/uL Hgb (13.0-17.0) g/dL Hct (38.0-50.0) % MCV (80.0-98.0) fL MCH (27.0-32.0) pg MCHC (31.0-37.0) g/dL RDW Std Deviation (28.0-62.0) fl RDW Coeff of Miguelito (11.0-15.0) % Plt Count (150-400) K/uL MPV (7.40-12.00) fL Neut % (Auto) (48.0-80.0) % Lymph % (Auto) (16.0-40.0) % [place] % (Auto) (0.0-15.0) % Eos % (Auto) (0.0-7.0) % Baso % (Auto) (0.0-1.5) % Neut # (Auto) (1.4-5.7) K/uL Lymph # (Auto) (0.6-2.4) K/uL [place] # (Auto) (0.0-0.8) K/uL Eos # (Auto) (0.0-0.7) K/uL Baso # (Auto) (0.0-0.1) K/uL Nucleated RBC % /100WBC Nucleated RBCs # K/uL INR APTT (18.6-31.3) SEC Sodium (136-148) mmol/L Potassium (3.5-5.1) mmol/L Chloride (98-107) mmol/L Carbon Dioxide (21.0-32.0) mmol/L BUN (7.0-18.0) mg/dL Creatinine (0.8-1.3) mg/dL Est Cr Clr Drug Dosing mL/min Estimated GFR (MDRD) ml/min Glucose (74-106) mg/dL POC Glucose 94 (60-110) mg/dL Hemoglobin A1c (4.5 - 6.2) % Calcium (8.5-10.1) mg/dL Magnesium (1.8-2.4) mg/dL Total Bilirubin (0.2-1.0) mg/dL AST (15-37) IU/L ALT (14-63) IU/L Alkaline Phosphatase (46-116) U/L Creatine Kinase (26-308) U/L Total Protein (6.4-8.2) g/dL Albumin (3.4-5.0) g/dL Globulin (2.6-4.0) g/dL Albumin/Globulin Ratio (0.9-1.6) Triglycerides (0-200) mg/dL Cholesterol (50-200) mg/dL LDL Cholesterol, Calc (60-180) mg/dL VLDL Cholesterol (5-55) mg/dL HDL Cholesterol (40-60) mg/dL Cholesterol/HDL Ratio (3.3-6.0) Urine Opiates Screen NEGATIVE (NEGATIVE) Ur Oxycodone Screen NEGATIVE (NEGATIVE) Urine Methadone Screen NEGATIVE (NEGATIVE) Ur Barbiturates Screen NEGATIVE (NEGATIVE) Ur Phencyclidine Scrn NEGATIVE (NEGATIVE) Ur Amphetamine Screen NEGATIVE (NEGATIVE) U Methamphetamines Scrn NEGATIVE (NEGATIVE) U Benzodiazepines Scrn NEGATIVE (NEGATIVE) U Cocaine Metab Screen NEGATIVE (NEGATIVE) U Marijuana (THC) Screen NEGATIVE (NEGATIVE) Ethyl Alcohol mg/dL Influenza Type A RNA NEGATIVE (NEGATIVE) Influenza Type B RNA NEGATIVE (NEGATIVE) SARS-CoV-2 RNA (JILL) NEGATIVE (NEGATIVE) Med Orders - Current: Current Medications Acetaminophen (Tylenol) 650 mg PO Q4H PRN PRN Reason: Pain (Mild 1-3)/fever Atorvastatin Calcium (Lipitor) 80 mg PO BEDTIME AFSHIN Enoxaparin Sodium (Lovenox) 40 mg SUBCUT Q24H [facility] Last Admin: 03/28/20 14:43 Dose: 40 mg Documented by: Ondansetron HCl (Zofran Odt) 4 mg PO Q4H PRN PRN Reason: nausea, able to take PO Discontinued Medications Aspirin (Aspirin) 325 mg PO ONETIME ONE Stop: 03/28/20 08:26 Last Admin: 03/28/20 08:30 Dose: 325 mg Documented by: Iopamidol (Isovue Multipack-370 (76%)) 100 ml IVPUSH ONETIME ONE Stop: 03/28/20 09:31 Last Admin: 03/28/20 09:31 Dose: 100 ml Documented by: - Exam Quality Assessment: Reports: DVT Prophylaxis General: Reports: Alert, Oriented (Oriented x3 with frequent confusion over he is), Cooperative, No Acute Distress HEENT: Reports: Pupils Equal, Pupils Reactive, EOMI, Mucous Membr. Moist/[place] Neck: Reports: Supple Lungs: Reports: Clear to Auscultation, Normal Respiratory Effort Cardiovascular: Reports: Regular Rate, Regular Rhythm GI/Abdominal Exam: Normal Bowel Sounds, Soft, No Distention, No Mass Extremities: Normal Inspection, Normal Range of Motion, Pedal Edema Skin: Reports: Warm, Dry, Intact Neurological: Reports: Normal Speech, Normal Tone, Sensation Intact, Cranial Nerves Intact Psy/Mental Status: Reports: Alert, Normal Affect, Normal Mood
[2020-03-28] MEDS ORDERED: atorvaSTATin 40 MG Tab PO SCH (21:00)
== END 2020-03-28 20:02 | DRG 65 ==
LOC: MW.ED 07:25 → MW.MS 09:56
PROVIDERS: ADMIT Internal Medicine; ATTEND Internal Medicine
DX: I63.9 Cerebral infarction, unspecified (principal); G45.9 Transient cerebral ischemic attack, unspecified; G81.91 Hemiplegia, unspecified affecting right dominant side; I10 Essential (primary) hypertension; Z79.899 Other long term (current) drug therapy; Z87.442 Personal history of urinary calculi; R29.704 NIHSS score 4; Z20.822 Contact with and (suspected) exposure to COVID-19
CPT/HCPCS: 0240U; 36415; 70450; 70450-26; 70496; 70496-26; 70498; 70498-26; 80053; 80061; 80179; 80305-QW; 82550; 82962; 83036; 83735; 85025; 85610; 85730; 93005; 93010; 99283; 99285-25; A9270-GY; J1650; Q9967